=== PATIENT | female | born 1960 | race Caucasian/White ===

== ENCOUNTER → 2017-11-17 | Outpatient (CLI) | payer BC ==
--- NOTE | 2017-11-17 09:36 | XR ---
EXAMINATION TYPE: XR chest 2V DATE OF EXAM: 11/17/2017 COMPARISON: NONE TECHNIQUE: PA and lateral views submitted. HISTORY: SOB FINDINGS: The lungs are clear and there is no pneumothorax, pleural effusion, or focal pneumonia. Hypertrophi c and degenerative changes spine. Hyperinflation suggests COPD. IMPRESSION: 1. No acute process.
--- NOTE | 2017-11-23 09:03 | MM ---
Reason for exam: screening (asymptomatic). Last mammogram was performed 11 years and 6 months ago. History: Patient is postmenopausal. Physical Findings: A clinical breast exam by your physician is recommended on an annual basis and results should be correlated with mammographic findings. MG 3D Screening Mammo W/Cad Bilateral CC and MLO view(s) were taken. Prior study comparison: May 11, 2006, bilateral screening mammogram w/CAD. April 03, 2003, right breast special view mammogram. The breast tissue is heterogeneously dense. This may lower the sensitivity of mammography. There is a 3mm left upper outer quadrant mass at middle depth. On the right there is a 4mm lower outer quadrant mass on 3D MLO 27/75 and CC 48/77. Lateral right middle depth asymmetry. ASSESSMENT: Incomplete: need additional imaging evaluation, BI-RAD 0 RECOMMENDATION: Special view mammogram of both breasts. If lesion persists on supplemental views, image directed ultrasound is recommended. [facility] will attempt to contact patient to return for supplemental views and ultrasound if indicated.
== END | disposition home or self-care (01) ==
LOC: RADMAMWWP 07:59
PROVIDERS: ATTEND Family Medicine
DX: Z12.31 Encounter for screening mammogram for malignant neoplasm of breast (principal); R06.02 Shortness of breath
CPT/HCPCS: 71046; 77063; 77067

== ENCOUNTER → 2017-12-06 | Outpatient (CLI) | payer BC ==
--- NOTE | 2017-12-06 11:24 | MM ---
Reason for exam: additional evaluation requested from abnormal screening. Last mammogram was performed 1 month ago. History: Patient is postmenopausal. Physical Findings: Nurse did not find any significant physical abnormalities on exam. MG Work Up Mamm w CAD BILAT Bilateral spot compression CC, spot compression ML, and ML view(s) were taken. Prior study comparison: November 17, 2017, bilateral MG 3d screening mammo w/cad. May 11, 2006, bilateral screening mammogram w/CAD. Nodules persist bilateral ultrasound recommended. These results were verbally communicated with the patient and result sheet given to the patient on 12/06/17. ASSESSMENT: Incomplete: need additional imaging evaluation, BI-RAD 0 RECOMMENDATION: Ultrasound of both breasts.
--- NOTE | 2017-12-06 11:34 | USB ---
Reason for exam: additional evaluation requested from prior study. History: Patient is postmenopausal. US Breast Workup Limited CAILIN Right limited breast ultrasound including focal area of concern, retroareolar and axilla demonstrates an axillary node, and a 0.3 x 0.4 x 0.3 cm to small to charactorize lesion at 10 o'clock. Left complete breast ultrasound includes all four quadrants, the retroareolar region and axilla. Finding demonstrates a 0.6 x 0.6 x 0.6 lesion at 4 o'clock and an axillary node. These results were verbally communicated with the patient and result sheet given to the patient on 12/06/17. ASSESSMENT: Probably benign, BI-RAD 3 RECOMMENDATION: Follow-up diagnostic mammogram of both breasts in 6 months.
== END | disposition home or self-care (01) ==
LOC: RADMAMWWP 08:09
PROVIDERS: ATTEND Family Medicine
DX: R92.8 Other abnormal and inconclusive findings on diagnostic imaging of breast (principal)
CPT/HCPCS: 77066

== ENCOUNTER → 2018-07-12 | Outpatient (CLI) | payer BC ==
--- NOTE | 2018-07-12 11:03 | MM ---
Reason for exam: follow-up at short interval from prior study. Last mammogram was performed 7 months ago. History: Patient is postmenopausal. Physical Findings: Nurse did not find any significant physical abnormalities on exam. MG Diagnostic Mammo w CAD CAILIN Bilateral CC and MLO view(s) were taken. Prior study comparison: December 06, 2017, bilateral MG work up mamm w CAD BILAT. November 17, 2017, bilateral MG 3d screening mammo w/cad. The breast tissue is heterogeneously dense. This may lower the sensitivity of mammography. Nodularity persists. Bilateral ultrasound recommended. These results were verbally communicated with the patient and result sheet given to the patient on 07/12/18. ASSESSMENT: Incomplete: need additional imaging evaluation, BI-RAD 0 RECOMMENDATION: Ultrasound of both breasts.
--- NOTE | 2018-07-12 11:05 | USB ---
Reason for exam: additional evaluation requested from abnormal screening. History: Patient is postmenopausal. US Breast Limited BILAT Right limited breast ultrasound including focal area of concern, retroareolar and axilla demonstrates a 0.4 x 0.3 x 0.6cm cystic lesion at 12 o'clock. Left limited breast ultrasound including focal area of concern, retroareolar and axilla demonstrates a 0.7 x 0.3 x 0.5cm cystic lesion at 4 o'clock. These results were verbally communicated with the patient and result sheet given to the patient on 07/12/18. ASSESSMENT: Benign, BI-RAD 2 RECOMMENDATION: Return to routine screening mammogram schedule for both breasts. Back on schedule.
== END ==
LOC: RADMAMWWP 08:21
PROVIDERS: ATTEND Family Medicine
DX: R92.8 Other abnormal and inconclusive findings on diagnostic imaging of breast (principal)
CPT/HCPCS: 77066

== ENCOUNTER → 2020-02-01 | Outpatient (CLI) | payer BC | END | disposition home or self-care (01) | LOC: LABWHC1 13:25 | PROVIDERS: ATTEND Family Medicine | DX: Z03.818 Encounter for observation for suspected exposure to other biological agents ruled out (principal) ==

== ENCOUNTER → 2020-08-06 | Outpatient (CLI) | payer BC ==
--- NOTE | 2020-08-06 11:08 | CT ---
EXAMINATION TYPE: CT abdomen pelvis w con DATE OF EXAM: 08/06/2020 HISTORY: Acute diverticulitis per order. Pain and fever. CT DLP: 1434mGycm Automated Exposure Control for Dose Reduction was Utilized. CONTRAST: CT scan of the abdomen and pelvis is performed without oral but with IV Contrast, patient injected wi th 100 ml mL of Isovue 300. COMPARISON: None. FINDINGS: LUNG BASES: No significant abnormality is appreciated. LIVER/GB: No significant abnormality is appreciated. PANCREAS: No significant abnormality is seen. SPLEEN: No significant abnormality is seen. ADRENALS: No significant abnormality is seen. KIDNEYS: Symmetric cortical medullary uptake and excretion without concerning solid or cystic renal m ass or hydronephrosis seen bilaterally BOWEL: Suboptimal evaluation bowel without enteric contrast. No suspicious small or large bowel dilat ation. Mild wall thickening at level of hepatic flexure is nonspecific. There is additional mild wall thickening in the mid to distal left colon extending into the sigmoid colon. Some diverticula in the left colon extending to the sigmoid colon. There is mild ill-defined fluid and fat stranding proxima l to mid sigmoid colon in the anterior upper to mid pelvis just left of midline.. No free air. No wel l-formed fluid collection or drainable abscess noted. UTERUS/ADNEXA: Uterus is surgically absent. There is occasional scattered pelvic phlebolith. Mild to moderate disc space narrowing and vacuum disc phenomenon L5-S1 level. Mild to moderate multilevel spu rring in the thoracolumbar spine. LYMPH NODES: No greater than 1cm abdominal or pelvic lymph nodes are appreciated. OSSEOUS STRUCTURES: No significant abnormality is seen. OTHER: No significant additional abnormality is seen. IMPRESSION: Mild uncomplicated acute diverticulitis proximal to mid sigmoid colon in the upper to mid pelvis just left of midline. A Yellow level critical message alert has been initiated for Dominic Mccain DO via the [employer] Critical Results System on 08/06/2020 11:05 AM. This message alert has been sent to Dominic Mccain DO vi a the preferences provided by the clinician for the receipt of Radiology Critical Findings. Message I D [id number].
--- NOTE | 2020-08-07 11:25 | MM ---
Reason for exam: screening (asymptomatic). Last mammogram was performed 2 years and 1 month ago. History: Patient is postmenopausal. Physical Findings: A clinical breast exam by your physician is recommended on an annual basis and results should be correlated with mammographic findings. MG Screening Mammo w CAD Bilateral CC and MLO view(s) were taken. Prior study comparison: July 12, 2018, bilateral MG diagnostic mammo w CAD CAILIN. December 06, 2017, bilateral MG work up mamm w CAD BILAT. There are scattered fibroglandular densities. There are benign appearing round calcifications bilaterally. There is chronic nodularity in the left breast. There is no discrete abnormality. ASSESSMENT: Benign, BI-RAD 2 RECOMMENDATION: Routine screening mammogram of both breasts in 1 year.
== END | disposition home or self-care (01) ==
LOC: RADCTMAIN 08:37
PROVIDERS: ATTEND Family Medicine
DX: Z12.31 Encounter for screening mammogram for malignant neoplasm of breast (principal); K57.32 Diverticulitis of large intestine without perforation or abscess without bleeding; Z78.0 Asymptomatic menopausal state
CPT/HCPCS: 77067; 74177; Q9967

== ENCOUNTER 2020-11-04 08:53 | Day surgery (SDC) | payer BC ==
[2020-10-31 17:54] VITALS: BMI 34.9
[~2020-11-04 08:53] MED LIST: LACTATED RINGERS 1,000 ML IV SCH; LIDOCAINE 1% (10MG/ML) FOR IV START INTRADERMA PRN
[2020-11-04 09:21] VITALS: TEMP 96.8
[2020-11-04] MEDS ORDERED: LACTATED RINGERS 1,000 ML IV ONE (09:27)
[2020-11-04] MEDS ORDERED: PROPOFOL 10 MG/ML 20 ML VIAL IV ONE (10:14)
[2020-11-04] MEDS ORDERED: LIDOCAINE 1% INJ 10MG/ML (20 ML MDV) ONE (10:14)
--- NOTE | 2020-11-04 10:19 | P.GSHP ---
History of Present Illness H&P Date: 11/04/20 Chief Complaint: Colon cancer screening Patient here today for colonoscopy. Last colonoscopy 7 years ago. Patient had diverticulitis in July. Otherwise doing well. No family history of colon cancer. Past Medical History Past Medical History: COPD, Hyperlipidemia Additional Past Medical History / Comment(s): Environmental allergies History of Any Multi-Drug Resistant Organisms: None Reported Past Surgical History: Hysterectomy, Orthopedic Surgery Additional Past Surgical History / Comment(s): Bilateral knee surgery, bilateral carpal tunnel surgery, left foot surgery, colonoscopy Past Anesthesia/Blood Transfusion Reactions: No Reported Reaction Smoking Status: Current every day smoker - Past Family History Sister(s) Family Medical History: Blood Disorder Additional Family Medical History / Comment(s): "blood is too thick" Medications and Allergies Home Medications Medication Instructions Recorded Confirmed Type Acetaminophen [Tylenol Extra 500 - 1,000 mg PO DIRECTED PRN 10/31/20 11/04/20 History Strength] Cholecalciferol [Vitamin D3 (25 25 mcg PO DAILY 10/31/20 11/04/20 History Mcg = 1000 Iu)] Kamiah-3 Fatty Acids [Kamiah-3] 500 mg PO DAILY 10/31/20 11/04/20 History Simvastatin [Zocor] 40 mg PO HS 10/31/20 11/04/20 History diphenhydrAMINE HCL [Benadryl] 25 mg PO TID 10/31/20 11/04/20 History Allergies Allergy/AdvReac Type Severity Reaction Status Date / Time cortisone [Cortisone] Allergy Swelling Verified 10/31/20 17:37 ibuprofen [From Motrin] Allergy Rash/Hives Verified 10/31/20 17:37 Surgical - Exam Vital Signs Temp Pulse Resp BP Pulse Ox 96.8 F L 88 16 151/79 95 11/04/20 09:17 11/04/20 09:17 11/04/20 09:17 11/04/20 09:17 11/04/20 09:17 Physical exam: General: Well-developed, well-nourished HEENT: Normocephalic, sclerae nonicteric Abdomen: Nontender, nondistended Extremities: No edema Neuro: Alert and oriented Assessment and Plan (1) Colon cancer screening Narrative/Plan: Will proceed with colonoscopy Current Visit: No Status: Acute Code(s): Z12.11 - ENCOUNTER FOR SCREENING FOR MALIGNANT NEOPLASM OF COLON SNOMED Code(s): 899195765
--- NOTE | 2020-11-04 10:33 | P.PCN ---
Date of Procedure: 11/04/20 Procedure(s) Performed: PREOPERATIVE DIAGNOSIS: Colon cancer screening POSTOPERATIVE DIAGNOSIS: Diverticulosis PROCEDURE: Colonoscopy ANESTHESIA: MAC SURGEON: Josiah Valle M.D. SPECIMENS: None ENDOSCOPIC PROCEDURE: The patient was placed on the endoscopy table in the left decubitus position. The Olympus colonoscope was inserted into the anus and passed under direct visualization to the base of the cecum. The appendiceal orifice was visualized. From that point the scope was slowly withdrawn inspe cting all surfaces carefully. There were no neoplastic inflammatory or polypoid lesions throughout the cecum, ascending, transverse, descending, sigmoid and rectum. There was moderate left-sided diverticulosis noted. In the sigmoid colon at 25 cm there was some mild edema of the wall of the colon with subtle narrowing suggestive of subacute or chronic diverticulitis. Digital rectal examination was normal. The patient was taken to the recovery room in stable condition per anesthesia guidelines. RECOMMENDATIONS: Resume diet. Follow-up colonoscopy in 10 years.
[2020-11-04 10:58] VITALS: BP 156/91; PULSE 88; RESP 20
== END 2020-11-04 11:10 | disposition home or self-care (01) ==
LOC: ORWHC2ENDO 08:53
PROVIDERS: ATTEND Surgery
DX: Z12.11 Encounter for screening for malignant neoplasm of colon (principal); K57.30 Diverticulosis of large intestine without perforation or abscess without bleeding; Z87.19 Personal history of other diseases of the digestive system; J44.9 Chronic obstructive pulmonary disease, unspecified; E78.5 Hyperlipidemia, unspecified; Z90.710 Acquired absence of both cervix and uterus; Z98.890 Other specified postprocedural states; F17.200 Nicotine dependence, unspecified, uncomplicated; Z83.2 Family history of diseases of the blood and blood-forming organs and certain disorders involving the immune mechanism; Z79.899 Other long term (current) drug therapy; Z88.6 Allergy status to analgesic agent; Z88.8 Allergy status to other drugs, medicaments and biological substances
CPT/HCPCS: J2001; J2704; G0121

== ENCOUNTER → 2021-01-16 | Outpatient (CLI) | payer BC ==
--- NOTE | 2021-01-16 16:53 | XR ---
Right hand HISTORY: Trauma and pain 3 views of the right hand Bone mineralization, joint spaces and alignment are maintained. Lucency present at the dorsal aspect of the middle falx of the second digit of the right hand is thought to be due to artifact. IMPRESSION: No fracture or dislocation is evident. Follow-up as indicated for persistent symptoms wit h findings described above, correlate for point tenderness at the proximal interphalangeal joint seco nd digit.
== END | disposition home or self-care (01) ==
LOC: RADXRMAIN 16:16
PROVIDERS: ATTEND Family Medicine
DX: S69.91XA Unspecified injury of right wrist, hand and finger(s), initial encounter (principal); M79.641 Pain in right hand

== ENCOUNTER → 2022-12-13 | Outpatient (CLI) | payer BC ==
--- NOTE | 2022-12-14 08:22 | MM ---
Reason for Exam: Screening (asymptomatic). Last mammogram was performed 2 year(s) and 4 month(s) ago. Patient History: Menarche at age 13. First Full-Term at age 20. Left ovary removed at age 41. Right ovary removed at age 41. Hysterectomy at age 41. Postmenopausal. Patient has history of breast feeding. Risk Values: Kimberly 5 year model risk: 1.1%. NCI Lifetime model risk: 5.2%. Prior Study Comparison: 12/06/2017 Bilateral Diagnostic Mammogram, [facility]. 07/12/2018 Bilateral Diagnostic Mammogram, [facility]. 08/06/2020 Bilateral Screening Mammogram, [facility]. Tissue Density: There are scattered fibroglandular densities. Findings: Analyzed By CAD. There is no suspicious group of microcalcifications or new suspicious mass in either breast. Benign calcifications within the left breast. Overall Assessment: Benign, BI-RAD 2 Management: Screening Mammogram of both breasts in 1 year. A clinical breast exam by your physician is recommended on an annual basis and results should be correlated with mammographic findings. Note on Kimberly scores and lifetime risk: 1. A Kimberly score greater than 3% is considered moderate risk. If this is the case, consider specialist referral to assess eligibility for a risk reducing agent. If overall lifetime risk for the development of breast cancer is 20% or higher, the patient may qualify for future screening with alternating mammogram and breast MRI. Electronically signed and approved by: Brenden Lyle D.O.
== END | disposition home or self-care (01) ==
LOC: RADMAMWWP 13:22
PROVIDERS: ATTEND Family Medicine
DX: Z12.31 Encounter for screening mammogram for malignant neoplasm of breast (principal); Z78.0 Asymptomatic menopausal state
CPT/HCPCS: 77063; 77067

== ENCOUNTER → 2022-12-23 | Outpatient (CLI) | payer OTHER ==
--- NOTE | 2022-12-23 14:22 | XR ---
EXAMINATION TYPE: XR shoulder complete LT DATE OF EXAM: 12/23/2022 COMPARISON: NONE HISTORY: Pain TECHNIQUE: Three views are submitted. FINDINGS: The osseous structures are intact. There is no acute fracture or dislocation. Diffuse osteopenia wit h moderate AC joint arthropathy. IMPRESSION: 1. Moderate AC joint arthropathy
--- NOTE | 2022-12-23 14:23 | XR ---
EXAMINATION TYPE: XR wrist complete LT DATE OF EXAM: 12/23/2022 COMPARISON: NONE HISTORY: Pain TECHNIQUE: Four views submitted. FINDINGS: The osseous structures are intact. The joint spaces are preserved and there is no acute fracture or dislocation. There is an 8 mm intraosseous lesion distal diaphysis radius. Mild first carpal metacar pal joint arthropathy. IMPRESSION: 1. No definite acute fracture or dislocation if symptoms persist, follow-up study in 7 to 10 days wo uld be suggested. 2. There is a intraosseous lesion measuring 8 mm distal diaphysis of the radius. Recommend bone scan.
== END | disposition home or self-care (01) ==
LOC: RADXRMAIN 13:43
PROVIDERS: ATTEND Family Medicine
DX: M19.012 Primary osteoarthritis, left shoulder (principal); M25.832 Other specified joint disorders, left wrist; M25.532 Pain in left wrist

== ENCOUNTER → 2023-02-15 | Outpatient (CLI) | payer BC ==
--- NOTE | 2023-02-28 20:36 | MR ---
EXAMINATION TYPE: MR forearm LT wo con DATE OF EXAM: 02/15/2023 COMPARISON: Wrist radiograph 07/23/2022, nuclear medicine bone scan 01/24/2023 HISTORY: 62-year-old female S52.502A FRACTURE OF THE LOWER END OF LEFT RADIUS, Hx of multiple cysts o n both hands that come and go, Distil forearm pain and swelling, Lump area marked with a bead TECHNIQUE: Multiplanar, multisequence images of the left forearm were obtained without IV contrast. FINDINGS: The lucent area on radiograph corresponds to a bubbly cystic lesion within the intramedullary space o f the distal radial metaphysis extending to the radial styloid process measuring up to 2.6 x 0.9 cm. There is an adjacent multilocular ganglion cyst along the radial volar recess of the wrist joint jose uring 1.9 x 0.9 cm. Additional cystic change is present within the radial side of the lunate bone measuring 5 mm. No acute or healing fracture is identified of the visualized radius or ulna. Large [id number] limi ts fine detailed assessment. Distal biceps tendon appears intact and no gross abnormality of the dors al extensor or volar flexor tendons is identified. No suspicious bone marrow replacement. There is a palpable marker placed along the ulnar aspect of the wrist/distal forearm. No discrete und erlying abnormality is seen. IMPRESSION: 1. The subtle lucent lesion within the distal radius noted on the patient's 12/23/2022 radiographs cor responds to an intraosseous ganglion cyst measuring 2.6 x 0.9 cm extending to the radial styloid proc ess. There is an additional multilocular ganglion cyst along the radial volar recess of the wrist sandoval nt measuring 1.9 x 0.9 cm. 2. No definite suspicious lesion or bone marrow replacement is apparent by MRI. No acute or healing f racture is seen. 3. Ulnar sided palpable marker. No discrete underlying abnormality is identified here.
== END | disposition home or self-care (01) ==
LOC: RADMRIMAIN 17:48
PROVIDERS: ATTEND Family Medicine
DX: S52.502A Unspecified fracture of the lower end of left radius, initial encounter for closed fracture (principal); M67.432 Ganglion, left wrist; X58.XXXA Exposure to other specified factors, initial encounter

== ENCOUNTER → 2024-05-16 | Outpatient (CLI) | payer BC ==
--- NOTE | 2024-05-16 17:09 | MM ---
Reason for Exam: Screening (asymptomatic). Last mammogram was performed 1 year(s) and 5 month(s) ago. Patient History: Menarche at age 13. First Full-Term at age 20. Left ovary removed at age 41. Right ovary removed at age 41. Hysterectomy at age 41. Postmenopausal. Patient has history of breast feeding. Risk Values: Kimberly 5 year model risk: 1.1%. NCI Lifetime model risk: 5.0%. Prior Study Comparison: 07/12/2018 Bilateral Diagnostic Mammogram, [facility]. 08/06/2020 Bilateral Screening Mammogram, [facility]. 12/13/2022 Bilateral MG 3D screening mammo w/cad, [facility]. Tissue Density: There are scattered areas of fibroglandular density. Findings: Analyzed By CAD. Unchanged asymmetric density anterior lateral right CC view. However, small area of focal asymmetry approximately 9:00 right breast middle depth appears more pronounced. Further evaluation recommended. Otherwise, no significant change. Overall Assessment: Incomplete: need additional imaging evaluation, BI-RAD 0 Management: Special View Mammogram of the right breast. Diagnostic Breast Ultrasound of the right breast. [facility] will attempt to contact patient to return for supplemental views and ultrasound if indicated. [facility], , 05/16/2024 5:07 PM. Electronically signed and approved by: Bruno Cherry M.D. Radiologist
== END | disposition home or self-care (01) ==
LOC: RADMAMWWP 14:21
PROVIDERS: ATTEND Family Medicine
DX: Z12.31 Encounter for screening mammogram for malignant neoplasm of breast (principal); Z90.722 Acquired absence of ovaries, bilateral; Z78.0 Asymptomatic menopausal state; R92.323 Mammographic fibroglandular density, bilateral breasts
CPT/HCPCS: 77067

== ENCOUNTER → 2024-07-18 | Outpatient (CLI) | payer BC ==
--- NOTE | 2024-07-18 10:30 | CA ---
Exercise Stress Test Report Name: Jacqueline Jose Exam Date: 07/18/2024 08:54 Exam Location: [facility] Ht (in): 65 Wt (lb): 205 BSA: 2.00 Ordering Phys: Dominic Mccain DO Referring Phys: Krysta Weaver [facility] Technologist: Fran Fletcher Age: 63 Gender: F : 1960 Procedure CPT: Indications: R07.9 CHEST PAIN ICD-10 Codes: Patient History: Chest pain, palpitations, hyperlipidemia, family history of heart disease and tobacco use. Medications: SIMVASTATIN,,,, VIT D3,,,, BENADRYL,,, Meds past 24 hrs: Pretest Chest Pain: STRESS TEST Keith Protocol Exercise Duration (min:sec): 03:[address] Depressions (mm): Angina Score: Worthington Score: Resting HR (bpm): 83 Peak HR (bpm): 138 Resting BP (mmHg): 140 / 86 Peak BP (mmHg): 202 / 84 MPHR: 158 Target HR: 134 % MPHR: 87 METS: 4.7 Total Dose: Peak Dose: Atropine: Double Product: 05054 BP Response: Stress Termination: TARGET HR REACHED/MAX EXERTION Stress Symptoms: DIFFICULTY IN BREATHING Stress Summary: ECG ANALYSIS Resting ECG: Normal sinus rhythm normal axis normal intervals Stress ECG: Patient exercised on Keith protocol for 3 minutes achieving 85% of predicted maximal heart rate without chest pain or diagnostic ST segment depression CONCLUSIONS Very poor exercise tolerance Negative stress test by EKG criteria Consider stress imaging study for more definitive evaluation Dr. Cj Muse MD (Electronically Signed) Final Date: 18 July 2024 10:29
== END | disposition home or self-care (01) ==
LOC: RADNMMAIN 08:33
PROVIDERS: ATTEND Family Medicine
DX: R07.9 Chest pain, unspecified (principal); E78.5 Hyperlipidemia, unspecified; R00.2 Palpitations; Z82.49 Family history of ischemic heart disease and other diseases of the circulatory system
CPT/HCPCS: 93017